=== PATIENT | female | born 1975 | race Caucasian/White ===

== ENCOUNTER 2018-08-17 15:49 | Emergency (ER) | payer OTHER ==
[2018-08-17 15:52] VITALS: BP 133/88; PULSE 93; TEMP 97.3; BMI 38.4
[2018-08-17] MEDS ORDERED: CYCLOBENZAPRINE HCL 10 MG TABLET (FP) PO ONE (16:43)
[2018-08-17] MEDS ORDERED: ACETAMINOPHEN 325 MG TABLET (FP) PO ONE (16:44)
[2018-08-17] MEDS ORDERED: ACETAMINOPHEN 325 MG TABLET (FP) ONE (16:57)
[2018-08-17] MEDS ORDERED: CYCLOBENZAPRINE HCL 10 MG TABLET (FP) ONE (16:57)
[2018-08-17 17:12] LABS: URINE APPEARANCE CLEAR; URINE BILIRUBIN NEGATIVE (<2.0 mg/dL); URINE COLOR YELLOW; URINE GLUCOSE (UA) NEGATIVE (NEGATIVE); URINE KETONE NEGATIVE (NEGATIVE); URINE LEUK ESTERASE NEGATIVE (NEGATIVE); URINE NITRITE NEGATIVE (NEGATIVE); URINE PROTEIN NEGATIVE (NEGATIVE)
[2018-08-17 17:29] LABS: EPI CELLS RARE /HPF (FEW); URINE MUCUS FEW
--- NOTE | 2018-08-17 18:04 | PDOC ---
History of Present Illness - General Chief Complaint: Pain Stated Complaint: RIGHT HIP / LEG PAIN Time Seen by Provider: 08/17/18 16:40 History Source: Patient (back pain radiating to R leg X 3 days) - History of Present Illness Associated Symptoms: denies: weakness Past History - Travel Traveled outside of the country in the last 30 days: No Close contact w/someone who was outside of country & ill: No - Past Medical History Allergies/Adverse Reactions: Allergies Allergy/AdvReac Type Severity Reaction Status Date / Time No Known Allergies Allergy Verified 08/17/18 15:52 Home Medications: Ambulatory Orders Cyclobenzaprine HCl 10 mg PO BID 10 Days #20 tablet 08/17/18 Naproxen [EC-Naprosyn] 500 mg PO BID #30 tablet. 08/17/18 COPD: No - Suicide/Smoking/Psychosocial Hx Smoking History: Never smoked Review of Systems - Review of Systems Is the patient limited Chinese proficient: No Constitutional: No: Chills, Fever Musculoskeletal: Yes: Back Pain. 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, Fully Oriented, Alert Moderate Sedation - Procedure Monitoring Vital Signs: Procedure Monitoring Vital Signs Temperature 97.3 F L 08/17/18 15:49 Pulse Rate 93 H 08/17/18 15:49 Respiratory Rate 18 08/17/18 15:49 Blood Pressure 133/88 08/17/18 15:49 O2 Sat by Pulse Oximetry (%) 99 08/17/18 15:49 ED Treatment Course - ADDITIONAL ORDERS Additional order review: Laboratory Results 08/17/18 17:01 Urine Color Yellow Urine Appearance Clear Urine pH 6.0 Ur Specific [place] 1.029 Urine Protein Negative Urine Glucose (UA) Negative Urine Ketones Negative Urine Blood 1+ H Urine Nitrite Negative Urine Bilirubin Negative Urine Urobilinogen 2.0 H Ur Leukocyte Esterase Negative Urine WBC (Auto) 2 Urine RBC (Auto) 1 Ur Epithelial Cells Rare Urine Mucus Few - Medications Given in the ED: ED Medications Discontinued Medications Generic Name Dose Route Start Last Admin Trade Name Luisa PRN Reason Stop Dose Admin Acetaminophen 650 mg 08/17/18 16:44 08/17/18 17:04 Tylenol - PO 08/17/18 16:45 650 mg ONCE ONE Administration Cyclobenzaprine HCl 10 mg 08/17/18 16:43 08/17/18 17:04 Flexeril - PO 08/17/18 16:44 10 mg ONCE ONE Administration Medical Decision Making - Medical Decision Making 08/17/18 17:57 43y/o F with R buttock pain radiating to lower leg X 3 days, pt denies trauma, UTI sx, b/b incontinence or saddle anesthesia exam with SLR @ 45 degrees , +tenderness in sciatic notch pt with relief after flexeril *DC/Admit/Observation/Transfer Diagnosis at time of Disposition: Sciatic pain Qualifiers: Laterality: right Qualified Code(s): M54.31 - Sciatica, right side - Discharge Dispostion Disposition: HOME Condition at time of disposition: Stable Decision to Admit order: No - Prescriptions Prescriptions: Cyclobenzaprine HCl 10 mg PO BID 10 Days #20 tablet Naproxen [EC-Naprosyn] 500 mg PO BID #30 tablet.dr - Referrals Referrals: Frank Lucas MD [Primary Care Provider] - - Patient Instructions Printed Discharge Instructions: DI for Back Pain With Sciatica Additional Instructions: Please follow up with your primary doctor Return to the Emergency Department if worsening symptoms occurs - Post Discharge Activity
== END 2018-08-17 18:27 | disposition home or self-care (01) ==
LOC: JERFT 15:49
DX: M54.41 Lumbago with sciatica, right side (principal)
CPT/HCPCS: 81003; 81015; 87086; 99281-25